=== PATIENT | male | born 1970 | race Hispanic/Latino ===

== ENCOUNTER → 2021-01-03 | Outpatient (CLI) | payer BC | END | disposition home or self-care (01) | LOC: SHCH 10:56 | PROVIDERS: ATTEND Internal Medicine Cardiovascular Disease | DX: I25.5 Ischemic cardiomyopathy (principal) | CPT/HCPCS: 93306; 93356 ==

== ENCOUNTER → 2022-10-23 | Outpatient (CLI) | payer BC | END | disposition home or self-care (01) | LOC: LAB 10:00 | PROVIDERS: ATTEND Nurse Practitioner Acute Care | DX: I25.10 Atherosclerotic heart disease of native coronary artery without angina pectoris (principal); E78.2 Mixed hyperlipidemia | CPT/HCPCS: 36415; 80048; 80061; 83880 ==

== ENCOUNTER → 2022-10-30 | Outpatient (CLI) | payer BC | END | disposition home or self-care (01) | LOC: SLP 20:57 | PROVIDERS: ATTEND Internal Medicine Cardiovascular Disease | DX: G47.33 Obstructive sleep apnea (adult) (pediatric) (principal) | CPT/HCPCS: 95810 ==

== ENCOUNTER → 2022-12-01 | Outpatient (CLI) | payer BC | END | disposition home or self-care (01) | LOC: SLP 20:14 | PROVIDERS: ATTEND Internal Medicine Cardiovascular Disease | DX: G47.33 Obstructive sleep apnea (adult) (pediatric) (principal) | CPT/HCPCS: 95811 ==

== ENCOUNTER 2024-04-29 07:31 | Day surgery (SDC) | payer BC ==
[2024-04-27 10:31] LABS: BASOPHILS # (AUTO) 0.07 K/uL (0.00-0.20); BASOPHILS % (AUTO) 0.7 % (0.0-5.0); EOSINOPHILS # (AUTO) 0.28 K/uL (0.00-0.70); EOSINOPHILS % (AUTO) 2.8 % (0.0-8.0); HEMATOCRIT 42.5 % (42-54); IMMATURE GRANULOCYTE ABSOLUTE 0.03 K/uL (0-1); LYMPHOCYTES # (AUTO) 2.4 K/uL (1.0-4.8); LYMPHOCYTES % (AUTO) 23.4 % (21.0-51.0); MEAN CORPUSCULAR HEMOGLOBIN 29.6 pg (27.0-33.0); MEAN CORPUSCULAR HGB CONC 34.4 g/dL (32.0-36.0); MONOCYTES # (AUTO) 0.7 K/uL (0.1-1.0); MONOCYTES % (AUTO) 6.9 % (3.0-13.0); NEUTROPHILS # (AUTO) 6.7 K/uL (1.8-7.7); NEUTROPHILS % (AUTO) 65.9 % (40.0-77.0); PLATELET COUNT (AUTO) 257 K/uL (130-400); RED BLOOD CELL COUNT(AUTO) 4.94 MIL/uL (4.50-6.20); RED CELL DISTRIBUTION WIDTH 12.8 % (11.0-15.5); WHITE BLOOD COUNT (AUTO) 10.2 K/uL (4.8-10.8)
[2024-04-27 10:33] VITALS: BP 169/85; PULSE 75; RESP 19; TEMP 98.1
[2024-04-27 10:39] LABS: CREATININE 1.2 mg/dL (0.5-1.3)
[2024-04-27 10:42] LABS: INR 1.03 (0.85-1.15); PROTHROMBIN TIME 11.1 SEC (9.6-11.6)
[2024-04-27 10:43] LABS: PARTIAL THROMBOPLASTIN TIME 27.3 SEC (26.3-35.5)
[~2024-04-29] VITALS: Ht 188 cm; Wt 124.8 kg
[2024-04-29] VITALS (9 sets, daily range): BP systolic 120–144; BP diastolic 67–84; PULSE 73–84; RESP 16–17; TEMP 97–97.8
[~2024-04-29 07:31] MED LIST: AEC81 PO; ALPR1TAB7 PO; ATOR40TA69 PO; CARV12.511 PO; CARV25TA PO; DAPA10TA PO; DICL35CA3 PO; FURO20TA4 PO; HYDR-4068 PO; ICOS1CAP PO; NITR0.4T50 SL; PANT40GR PO; SACU1TAB7 PO; SPIR25TA6 PO; TRAZ-185 PO; VERI5TAB PO
[2024-04-29] MEDS: 0.9%NACL 1000ML 1,000 ML IV ONE (08:10)
[2024-04-29] MEDS ORDERED: VANCOMYCIN 1G/250ML KIT 500 ML IV ONE (08:57)
[2024-04-29] MEDS ORDERED: IOHEXOL-350 50ML VIAL IV ONE (08:57)
[2024-04-29] MEDS ORDERED: LIDOCAINE HCL 1% MDV 50ML VIAL ONE (08:57)
[2024-04-29] MEDS ORDERED: BUPIvacaine/PF 0.25% 30ML VIAL IJ ONE (08:57)
[2024-04-29] MEDS ORDERED: FENTanyl CITRate PF 50 MCG/1 ML 2ML VIAL ONE ×2 (09:26→10:07)
[2024-04-29] MEDS ORDERED: MIDAZOLAM HCL 1 MG/ML 2ML VIAL ONE ×3 (09:26→10:26)
[2024-04-29] MEDS ORDERED: acetaMINOPHEN 500 MG TABLET PO PRN (11:00)
[2024-04-29] MEDS ORDERED: NITROGLYCERIN 0.4 MG SL TAB SL PRN (11:30)
[2024-04-29] MEDS ORDERED: HYDROcodone/acetaMINOPHEN 10/325 MG TAB PO PRN (11:30)
[2024-04-29] MEDS ORDERED: ALPRAZolam 1 MG TAB PO PRN (11:30)
[2024-04-29] MEDS ORDERED: MINO100T10 PO (11:41)
[2024-04-29] MEDS ORDERED: TRAM50TA4 PO (11:42)
[2024-04-29] MEDS ORDERED: MINOCYCLINE HCL 50 MG CAP PO SCH (21:00)
[2024-04-29] MEDS ORDERED: SACUBITRIL/VALSARTAN 1 EACH TABLET PO SCH (21:00)
[2024-04-29] MEDS ORDERED: atorVAStatin 40 MG TABLET PO SCH (21:00)
[2024-04-29] MEDS ORDERED: carVEDIlol 12.5 MG TABLET PO SCH (21:00)
[2024-04-30] MEDS ORDERED: trAZOdone HCL 50 MG TAB PO SCH (09:00)
[2024-04-30] MEDS ORDERED: ASPIRIN 81 MG EC TAB PO SCH (09:00)
[2024-04-30] MEDS ORDERED: carVEDIlol 25 MG TABLET PO SCH (09:00)
[2024-04-30] MEDS ORDERED: SPIRONOLACTONE 25 MG TAB PO SCH (09:00)
[2024-04-30] MEDS ORDERED: furoSEMIDE 20 MG TABLET PO SCH (09:00)
== END 2024-04-29 13:30 | disposition home or self-care (01) ==
LOC: DAH 07:31
PROVIDERS: ATTEND Student in an Organized Health Care Education/Training Program
DX: I25.5 Ischemic cardiomyopathy (principal); I25.10 Atherosclerotic heart disease of native coronary artery without angina pectoris; I50.22 Chronic systolic (congestive) heart failure; E78.2 Mixed hyperlipidemia; Z95.1 Presence of aortocoronary bypass graft; Z95.5 Presence of coronary angioplasty implant and graft; Z88.0 Allergy status to penicillin; Z79.82 Long term (current) use of aspirin; Z79.899 Other long term (current) drug therapy
CPT/HCPCS: 80048; 85025; 85610; 85730; 36415; 93005; 33249; 71045; C1721; C1896; C1895; C1894; J3010 ×2; J7030; J0665; J2250 ×3; J3370; J3490; A4215 ×2; A4222; A4663; A4216; A4606; A4223 ×3; A4221; 96360; 96361; 99156; 99157; Q9967

== ENCOUNTER → 2025-04-05 | Outpatient (CLI) | payer BC ==
[~2025-04-05] MED LIST changes: +MINO100T10 PO; +TRAM50TA4 PO
--- NOTE | 2025-04-06 11:38 | HMCIMG ---
EXAM: CR Chest, 2 views. CLINICAL HISTORY: ICD lead malfunctioning COMPARISON: Prior chest radiograph dated 29 April 2024 FINDINGS: Poststernotomy status. Normal cardiac size. Left-sided cardiac pacemaker with battery pack in the left anterior chest wall pacemaker wires in the right atrium and ventricles. No obvious disruption of the wire. The lungs show no infiltrate or other acute findings. No pleural effusion or pneumothorax. No acute osseous abnormality. IMPRESSION: Poststernotomy status. Normal cardiac size. Left-sided cardiac pacemaker with battery pack in the left anterior chest wall pacemaker wires in the right atrium and ventricles. No obvious disruption of the wire. Compared to the prior study, there is no significant interval change. Normally placed battery pack in the chest wall and the leads in the right atrium and ventricles. /[place]
== END | disposition home or self-care (01) ==
LOC: RAH 15:26
PROVIDERS: ATTEND Internal Medicine Cardiovascular Disease
DX: T82.111A Breakdown (mechanical) of cardiac pulse generator (battery), initial encounter (principal); Y92.89 Other specified places as the place of occurrence of the external cause
CPT/HCPCS: 71046